=== PATIENT | female | born 1995 | race Caucasian/White ===

== ENCOUNTER 2023-11-13 16:34 | Emergency (ER) | payer MEDICAID ==
[~2023-11-13] VITALS: Ht 157.5 cm; Wt 54.4 kg
[2023-11-13] MEDS ORDERED: ALLERGY MEDS PO (17:05)
[2023-11-13] MEDS ORDERED: KETOROLAC TROMETHAMINE 15 MG INJ ONE (17:27)
[2023-11-13] MEDS ORDERED: IBUP-1955 PO (17:29)
[2023-11-13] MEDS ORDERED: CYCL5TAB PO (17:29)
[2023-11-13] MEDS ORDERED: LIDO30AD10 TP (17:29)
[2023-11-13] MEDS: KETOROLAC TROMETHAMINE 15 MG INJ IM ONE (17:32)
[2023-11-13 18:41] VITALS: BP 119/70; O2SAT 98
== END 2023-11-13 17:43 | disposition home or self-care (01) ==
LOC: ER 16:34
DX: S16.1XXA Strain of muscle, fascia and tendon at neck level, initial encounter (principal); M79.10 Myalgia, unspecified site; Z79.899 Other long term (current) drug therapy; V89.2XXA Person injured in unspecified motor-vehicle accident, traffic, initial encounter; Y93.89 Activity, other specified; Y92.89 Other specified places as the place of occurrence of the external cause; Y99.8 Other external cause status
CPT/HCPCS: 99283; 96372; J1885; A4606; A4663